=== PATIENT | female | born 1950 | race Asian ===

== ENCOUNTER 2016-08-05 20:57 | Emergency (ER) | payer MEDICARE, OTHER ==
[~2016-08-05] VITALS: Ht 152.4 cm; Wt 68.2 kg
[2016-08-05] MEDS ORDERED: SULFAMETHOX/TRIMETH DS 800-160 MG/TABLET PO ONE (22:00)
[2016-08-05] MEDS ORDERED: CEPHALEXIN MONOHYDRATE 500 MG CAPSULE PO ONE ×2 (22:00)
[2016-08-05] MEDS ORDERED: CEPHALEXIN MONOHYDRATE 250 MG/5 ML SUSPENSION ORAL.SYG PO ONE (22:00)
[2016-08-05] MEDS ORDERED: BACITRACIN 0.9 GM PACKET OINTMENT TP ONE (22:00)
[2016-08-05] MEDS ORDERED: PERTUSS(ACELL),DIPH,TET VAC/PF 0.5 ML VIAL IM ONE (22:00)
[2016-08-05 22:13] VITALS: BP 164/84
== END 2016-08-05 22:34 | disposition home or self-care (01) ==
LOC: EMS 21:10
DX: S80.812A Abrasion, left lower leg, initial encounter (principal); L08.9 Local infection of the skin and subcutaneous tissue, unspecified; I10 Essential (primary) hypertension; E78.00 Pure hypercholesterolemia, unspecified; W45.8XXA Other foreign body or object entering through skin, initial encounter; Y93.89 Activity, other specified; Y92.89 Other specified places as the place of occurrence of the external cause; Y99.8 Other external cause status
CPT/HCPCS: 90471; 90715; 99284